=== PATIENT | male | born 2000 | race Native Hawaiian/Other Pacific Islander ===

== ENCOUNTER 2020-12-28 23:09 | Emergency (ER) | payer OTHER ==
[2020-12-28 23:17] VITALS: TEMP 98.6
[2020-12-28] MEDS ORDERED: SODIUM CHLORIDE 0.9% 500 ML 500 ML IV STA (23:50)
--- NOTE | 2020-12-28 23:51 | ED ---
SOB HPI - General Chief Complaint: Shortness of Breath Stated Complaint: SOB, high BP Time Seen by Provider: 12/28/20 23:23 Source: patient Mode of arrival: ambulatory - History of Present Illness Initial Comments: This patient is 20-year-old man who presents with complaint of shortness of breath. The patient has been having episodes of upper abdominal pain, and had been given Bentyl to take by his physician. Patient had not taken this before and then when he took a dose of that tonight, he became very short of breath, anxious and tremulous. No swelling to the oropharynx. No cough or wheeze. No vomiting or diarrhea. No rash. MD Complaint: shortness of breath -: minutes(s) Severity scale (1-10): 0 Consistency: constant Improves With: nothing Worsens With: nothing Associated Symptoms: abdominal pain Treatments Prior to Arrival: none - Related Data Home Medications Medication Instructions Recorded Confirmed Terbinafine [LamISIL] 250 mg PO DAILY 12/31/20 12/31/20 Allergies Allergy/AdvReac Type Severity Reaction Status Date / Time dicyclomine [From Bentyl] AdvReac high blood Verified 12/31/20 12:53 pressure Review of Systems ROS Statement: Those systems with pertinent positive or pertinent negative responses have been documented in the HPI. ROS Other: All systems not noted in ROS Statement are negative. Constitutional: Denies: fever, chills ENT: Denies: throat pain, congestion Respiratory: Reports: dyspnea. Denies: cough, wheezes, stridor Cardiovascular: Reports: palpitations. Denies: chest pain, orthopnea, edema, syncope Gastrointestinal: Reports: as per HPI, abdominal pain. Denies: nausea, vomiting, diarrhea Genitourinary: Denies: dysuria, hematuria, testicular pain Musculoskeletal: Denies: back pain Skin: Denies: rash Neurological: Denies: headache, weakness, numbness Psychiatric: Reports: anxiety Past Medical History Past Medical History: No Reported History History of Any Multi-Drug Resistant Organisms: None Reported Additional Past Surgical History / Comment(s): cyst removal head. Past Psychological History: No Psychological Hx Reported Smoking Status: Vaper Past Alcohol Use History: None Reported Past Drug Use History: None Reported General Exam General appearance: alert, in no apparent distress Head exam: Present: atraumatic, normocephalic Eye exam: Present: normal appearance. Absent: scleral icterus, conjunctival injection ENT exam: Present: normal oropharynx Neck exam: Present: normal inspection, full ROM Respiratory exam: Present: normal lung sounds bilaterally. Absent: respiratory distress, wheezes, rales, rhonchi, stridor Cardiovascular Exam: Present: regular rate, normal rhythm, normal heart sounds. Absent: systolic murmur, diastolic murmur, rubs, gallop GI/Abdominal exam: Present: soft. Absent: distended, tenderness, guarding, rebound, rigid, mass Extremities exam: Present: normal inspection, normal capillary refill. Absent: pedal edema, calf tenderness Back exam: Present: normal inspection. Absent: CVA tenderness (R), CVA tenderness (L) Neurological exam: Present: alert Psychiatric exam: Present: anxious Skin exam: Present: warm, dry, intact, normal color. Absent: rash Course Vital Signs 12/28/20 12/29/20 23:12 00:07 Temperature 98.6 F Pulse Rate 105 H 92 Respiratory 19 18 Rate Blood Pressure 157/99 137/94 O2 Sat by Pulse 97 99 Oximetry Medical Decision Making - Medical Decision Making Patient is 20-year-old man who is having adverse reaction after taking first dose of Bentyl. Given the recent abdominal pains, he also had some lab testing related to that. The workup is negative, and I did recommend ultrasound, and attempted to order that but ultrasound not present in the billing at this time. I discussed appropriate further care and follow-up and patient will refrain from taking further Bentyl - Lab Data Result diagrams: 12/28/20 00:00 12/28/20 00:00 Lab Results 12/28/20 12/28/20 12/28/20 Range/Units 00:00 00:00 00:00 WBC 6.6 (3.8-10.6) k/uL RBC 5.31 (4.30-5.90) m/uL Hgb 16.5 (13.0-17.5) gm/dL Hct 48.4 (39.0-53.0) % MCV 91.3 (80.0-100.0) fL MCH 31.1 (25.0-35.0) pg MCHC 34.0 (31.0-37.0) g/dL RDW 12.1 (11.5-15.5) % Plt Count 246 (150-450) k/uL MPV 9.2 Neutrophils % 60 % Lymphocytes % 31 % Monocytes % 6 % Eosinophils % 0 % Basophils % 0 % Neutrophils # 4.0 (1.3-7.7) k/uL Lymphocytes # 2.0 (1.0-4.8) k/uL Monocytes # 0.4 (0-1.0) k/uL Eosinophils # 0.0 (0-0.7) k/uL Basophils # 0.0 (0-0.2) k/uL Sodium 141 (137-145) mmol/L Potassium 3.7 (3.5-5.1) mmol/L Chloride 102 (98-107) mmol/L Carbon Dioxide 28 (22-30) mmol/L Anion Gap 11 mmol/L BUN 9 (9-20) mg/dL Creatinine 0.93 (0.66-1.25) mg/dL Est GFR (CKD-EPI)AfAm >90 (>60 ml/min/1.73 sqM) Est GFR (CKD-EPI)NonAf >90 (>60 ml/min/1.73 sqM) Glucose 100 H (74-99) mg/dL Calcium 10.1 (8.4-10.2) mg/dL Total Bilirubin 1.2 (0.2-1.3) mg/dL AST 28 (17-59) U/L ALT 21 (4-49) U/L Alkaline Phosphatase 63 (38-126) U/L Troponin I <0.012 (0.000-0.034) ng/mL C-Reactive Protein <5.0 (<10.0) mg/L Total Protein 8.3 H (6.3-8.2) g/dL Albumin 5.1 H (3.5-5.0) g/dL Urine Color Urine Appearance (Clear) Urine pH (5.0-8.0) Ur Specific [place] (1.001-1.035) Urine Protein (Negative) Urine Glucose (UA) (Negative) Urine Ketones (Negative) Urine Blood (Negative) Urine Nitrite (Negative) Urine Bilirubin (Negative) Urine Urobilinogen (<2.0) mg/dL Ur Leukocyte Esterase (Negative) 12/28/20 Range/Units 23:59 WBC (3.8-10.6) k/uL RBC (4.30-5.90) m/uL Hgb (13.0-17.5) gm/dL Hct (39.0-53.0) % MCV (80.0-100.0) fL MCH (25.0-35.0) pg MCHC (31.0-37.0) g/dL RDW (11.5-15.5) % Plt Count (150-450) k/uL MPV Neutrophils % % Lymphocytes % % Monocytes % % Eosinophils % % Basophils % % Neutrophils # (1.3-7.7) k/uL Lymphocytes # (1.0-4.8) k/uL Monocytes # (0-1.0) k/uL Eosinophils # (0-0.7) k/uL Basophils # (0-0.2) k/uL Sodium (137-145) mmol/L Potassium (3.5-5.1) mmol/L Chloride (98-107) mmol/L Carbon Dioxide (22-30) mmol/L Anion Gap mmol/L BUN (9-20) mg/dL Creatinine (0.66-1.25) mg/dL Est GFR (CKD-EPI)AfAm (>60 ml/min/1.73 sqM) Est GFR (CKD-EPI)NonAf (>60 ml/min/1.73 sqM) Glucose (74-99) mg/dL Calcium (8.4-10.2) mg/dL Total Bilirubin (0.2-1.3) mg/dL AST (17-59) U/L ALT (4-49) U/L Alkaline Phosphatase (38-126) U/L Troponin I (0.000-0.034) ng/mL C-Reactive Protein (<10.0) mg/L Total Protein (6.3-8.2) g/dL Albumin (3.5-5.0) g/dL Urine Color Yellow Urine Appearance Clear (Clear) Urine pH 7.0 (5.0-8.0) Ur Specific [place] 1.012 (1.001-1.035) Urine Protein Negative (Negative) Urine Glucose (UA) Negative (Negative) Urine Ketones Negative (Negative) Urine Blood Negative (Negative) Urine Nitrite Negative (Negative) Urine Bilirubin Negative (Negative) Urine Urobilinogen <2.0 (<2.0) mg/dL Ur Leukocyte Esterase Negative (Negative) - EKG Data -: EKG Interpreted by Me EKG shows normal: sinus rhythm, axis (Normal), intervals (Normal), QRS complexes (Normal) Rate: normal (Rate 85 bpm) Interpretation: nonspecific ST-T wave changes Disposition Clinical Impression: Medication reaction Disposition: HOME SELF-CARE Condition: Good Instructions (If sedation given, give patient instructions): Adverse Drug Reaction (ED), Dyspnea (ED) Additional Instructions: As we discussed, follow-up with Dr. Kumar to have the additional studies scheduled. Is patient prescribed a controlled substance at d/c from ED?: No Referrals: Galo Kumar MD [Primary Care Provider] - 1-2 days
[2020-12-29 00:08] VITALS: BP 137/94; PULSE 92; RESP 18
[2020-12-29 00:09] LABS: Basophils % (A) 0 %; Eosinophils % (A) 0 %; HCT 48.4 % (39.0-53.0); HGB 16.5 gm/dL (13.0-17.5); Lymphocytes % (A) 31 %; MCH 31.1 pg (25.0-35.0); MCV 91.3 fL (80.0-100.0); Mean Platelet Volume 9.2; Monocytes # (A) 0.4 k/uL (0-1.0); Monocytes % (A) 6 %; Neutrophils % (A) 60 %; Platelet Count 246 k/uL (150-450); RBC 5.31 m/uL (4.30-5.90); RDW 12.1 % (11.5-15.5); WBC 6.6 k/uL (3.8-10.6)
[2020-12-29 00:11] LABS: Appearance,Urine Clear (Clear); Bilirubin,Urine Negative (Negative); Blood,Urine Negative (Negative); Color,Urine Yellow; Glucose,Urine (UA) Negative (Negative); Ketones,Urine Negative (Negative); Leukocyte Esterase,Urine Negative (Negative); Nitrite,Urine Negative (Negative); Protein,Urine Negative (Negative); Specific Gravity,Urine 1.012 (1.001-1.035); Urobilinogen,Urine <2.0 mg/dL (<2.0)
--- NOTE | 2020-12-29 00:16 | XR ---
EXAMINATION TYPE: XR chest 2V DATE OF EXAM: 12/28/2020 COMPARISON: NONE HISTORY: Short of breath TECHNIQUE: FINDINGS: Heart and mediastinum are normal. Lungs are clear. Diaphragm is normal. Bony thorax appears normal. IMPRESSION: Normal chest. Normal heart.
[2020-12-29 00:34] LABS: ALT 21 U/L (4-49); AST 28 U/L (17-59); African American GFR (CKD) >90 (>60 ml/min/1.73 sqM); Albumin 5.1 g/dL (3.5-5.0); Alkaline Phosphatase 63 U/L (38-126); Anion Gap 11 mmol/L; Blood Urea Nitrogen 9 mg/dL (9-20); Calcium 10.1 mg/dL (8.4-10.2); Carbon Dioxide 28 mmol/L (22-30); Chloride 102 mmol/L (98-107); Glucose 100 mg/dL (74-99); Non-African American GFR(CKD) >90 (>60 ml/min/1.73 sqM); Potassium 3.7 mmol/L (3.5-5.1); Sodium 141 mmol/L (137-145); Total Bilirubin 1.2 mg/dL (0.2-1.3); Total Protein 8.3 g/dL (6.3-8.2)
[2020-12-29 00:51] LABS: C Reactive Protein <5.0 mg/L (<10.0)
== END 2020-12-29 01:30 | disposition home or self-care (01) ==
LOC: EC 23:09
DX: R06.02 Shortness of breath (principal); R10.10 Upper abdominal pain, unspecified; T50.905A Adverse effect of unspecified drugs, medicaments and biological substances, initial encounter; F17.290 Nicotine dependence, other tobacco product, uncomplicated; Z79.899 Other long term (current) drug therapy; Z88.8 Allergy status to other drugs, medicaments and biological substances
CPT/HCPCS: 36415; 71046; 80053; 81003; 84484; 85025; 86140; 93005; 96360; 99285

== ENCOUNTER 2020-12-31 10:34 | Observation (INO) | payer OTHER ==
[2020-12-31] MEDS ORDERED: ONDANSETRON 4 MG/2 ML VIAL IVP PRN (13:36)
[2020-12-31] MEDS ORDERED: HYDROmorphone 0.5 MG/0.5 ML SYRINGE IVP PRN (13:37)
--- NOTE | 2020-12-31 14:51 | US ---
EXAMINATION TYPE: US abdomen complete DATE OF EXAM: 12/31/2020 COMPARISON: NONE CLINICAL HISTORY: RUQ pain. EXAM MEASUREMENTS: Liver Length: 12.7 cm Gallbladder Wall: 0.2 cm CBD: 0.3 cm Spleen: 10.2 cm Right Kidney: 10.2 X 4.0 X 4.6 cm Left Kidney: 9.8 X 5.9 X 4.8 cm Pancreas: wnl Liver: wnl Gallbladder: Slightly contracted. Patient ate and drank around 10:30am Evidence for sonographic Sumner's sign: No CBD: wnl Spleen: wnl Right Kidney: No hydronephrosis or masses seen Left Kidney: No hydronephrosis or masses seen The liver is homogenous. There is no evidence of cholelithiasis. Common bile duct is unremarkable. The visualized portions of the pancreas are homogenous. The spleen is unremarkable. Kidneys are sy mmetric and free of hydronephrosis. No renal lesions are seen. IMPRESSION: No distinct abnormality seen.
[2020-12-31 16:13] LABS: ALT 20 U/L (4-49); AST 24 U/L (17-59); African American GFR (CKD) >90 (>60 ml/min/1.73 sqM); Albumin 4.8 g/dL (3.5-5.0); Albumin/Globulin Ratio 1.7; Alkaline Phosphatase 60 U/L (38-126); Anion Gap 9 mmol/L; Blood Urea Nitrogen 10 mg/dL (9-20); Calcium 9.9 mg/dL (8.4-10.2); Carbon Dioxide 29 mmol/L (22-30); Chloride 101 mmol/L (98-107); Globulin 2.9 g/dL; Glucose 95 mg/dL (74-99); HCT 44.3 % (39.0-53.0); MCH 31.3 pg (25.0-35.0); MCV 92.1 fL (80.0-100.0); Non-African American GFR(CKD) >90 (>60 ml/min/1.73 sqM); Platelet Count 216 k/uL (150-450); Potassium 4.1 mmol/L (3.5-5.1); RBC 4.81 m/uL (4.30-5.90); RDW 11.6 % (11.5-15.5); Sodium 139 mmol/L (137-145); Total Bilirubin 1.2 mg/dL (0.2-1.3); Total Protein 7.7 g/dL (6.3-8.2); WBC 5.2 k/uL (3.8-10.6)
[2020-12-31] MEDS: PANTOPRAZOLE 40 MG/10 ML VIAL IVP SCH (16:16)
[2020-12-31] MEDS: SODIUM CHLORIDE 0.9% 1,000 ML IV SCH ×2 (16:16→20:45)
[2020-12-31] MEDS: IOPAMIDOL CONTRAST (ORAL USE) VIAL PO PRN ×2 (17:14→17:59)
--- NOTE | 2020-12-31 20:59 | CT ---
EXAMINATION TYPE: CT abdomen pelvis w con DATE OF EXAM: 12/31/2020 COMPARISON: Same-day ultrasound. HISTORY: abdominal pain X 2-[address] DLP: 561.9 mGycm Automated exposure control for dose reduction was used. TECHNIQUE: Helical acquisition of images was performed from the lung bases through the pelvis. CONTRAST: Performed with Oral Contrast and with IV Contrast, patient injected with 100 mL of Isovue 300. FINDINGS: LUNG BASES: No significant abnormality is appreciated. LIVER/GB: No significant abnormality is appreciated. PANCREAS: No significant abnormality is seen. SPLEEN: No significant abnormality is seen. ADRENALS: No significant abnormality is seen. KIDNEYS: No significant abnormality is seen. FREE AIR: No free air is visualized. RETROPERITONEAL ADENOPATHY: None visualized REPRODUCTIVE ORGANS: No significant abnormality is seen URINARY BLADDER: No significant abnormality is seen. PELVIC ADENOPATHY: None visualized. OSSEOUS STRUCTURES: No significant abnormality is seen. BOWEL: No significant abnormality is seen. OTHER: None IMPRESSION: GROSSLY UNREMARKABLE CT.
[2020-12-31] MEDS: HYDROcodone/APAP 5-325MG 1 EACH TAB PO PRN (21:57)
[2021-01-01] MEDS: SODIUM CHLORIDE 0.9% 1,000 ML IV SCH ×3 (04:19→21:44)
[2021-01-01] MEDS: PANTOPRAZOLE 40 MG/10 ML VIAL IVP SCH (08:35)
--- NOTE | 2021-01-01 13:33 | P.GSCN ---
History of Present Illness Consult date: 01/01/21 History of present illness: CHIEF COMPLAINT: Abdominal pain HISTORY OF PRESENT ILLNESS: This is a 20-year-old male with a known past medical history of nicotine dependence and toenail fungus in which she is on Lamisil. He presents to the hospital as a direct admit from Dr. Kumar's office in regards to abdominal pain. Patient reports that he has had abdominal pain for about a month and a half. He reports discomfort initially when he eats something going down through the esophagus and into the abdomen. He reports that "it feels like something is sitting in the abdomen." Patient complains of discomfort in the epigastric and left upper quadrant area. He complains of gas discomfort. He also has issues with constipation. He did have a soft stool yesterday that was greenish in color. He denies any blood in his stools. He also reports that there is a lot of discomfort in the abdomen when he tries to lay down flat on his back. He does have a uncle with a known history of Crohn's disease. He reports that his pain is worse after eating. He did undergo a trial of omeprazole with no improvement. He also tried Bentyl and had an ALLERGIC reaction to that medication. Patient denies any fever chills or sweats. Denies any nausea or vomiting. Patient denies any NSAID use. Abdominal ultrasound and computed tomography scan of the abdomen and pelvis was negative. Surgical service was consulted for abdominal pain and possible EGD. PAST MEDICAL HISTORY: See list. PAST SURGICAL HISTORY: See list. MEDICATIONS: See list. ALLERGIES: See list. SOCIAL HISTORY: No illicit drug use. REVIEW OF SYSTEMS: CONSTITUTIONAL: Denies fever or chills. HEENT: Denies blurred vision, vision changes, or eye pain. Denies hemoptysis CARDIOVASCULAR: Denies chest pain or pressure. RESPIRATORY: No shortness of breath. GASTROINTESTINAL: See HPI for pertinent findings HEMATOLOGIC: Denies bleeding disorders. GENITOURINARY: Denies any blood in urine or increased urinary frequency. SKIN: Denies pruitis. Denies rash. PHYSICAL EXAM: VITAL SIGNS: Reviewed GENERAL: Well-developed in no acute distress. HEENT: No sclera icterus. Extraocular movements grossly intact. Moist buccal mucosa. Head is atraumatic, normocephalic. No nasal drainage. ABDOMEN: Soft. Nondistended. Nontender NEUROLOGIC: Alert and oriented. Cranial nerves II through XII grossly intact. LABORATORY DATA: WBC 5.2 hemoglobin 15.0 platelets 216 creatinine 0.84 LFTs normal lipase 94 IMAGING: Computed tomography scan of the abdomen and pelvis and abdominal ultrasound nega tive HIDA scan pending ASSESSMENT: 1. Abdominal pain that is worse after eating PLAN: -Patient is scheduled for EGD on 01/02/[address] Kendrick -Ordered HIDA scan -Nothing by mouth after midnight -Continue IV Protonix Thank you for this consultation Physician Picker / Packer note has been reviewed by physician. Signing provider agrees with the documented findings, assessment, and plan of care. Past Medical History Past Medical History: No Reported History Additional Past Medical History / Comment(s): Pt states he has not felt well since 11/18/20-abdominal pain, flatulence, belching/contipation and stool is yellowish, feels worse after eating/drinking or lying down, states he has lost 15 pounds. Other hx: fungal infection toes, past hyperlipidemia improved with weight loss. History of Any Multi-Drug Resistant Organisms: None Reported Additional Past Surgical History / Comment(s): [place] sebacious cyst removed from head, bilateral lasik eye surgery for vision correction, wisdom teeth extractions. Past Anesthesia/Blood Transfusion Reactions: No Reported Reaction Smoking Status: Vaper - Past Family History Mother Family Medical History: Hypertension Father Family Medical History: Hyperlipidemia Medications and Allergies Home Medications Medication Instructions Recorded Confirmed Type Terbinafine [LamISIL] 250 mg PO DAILY 12/31/20 12/31/20 History Allergies Allergy/AdvReac Type Severity Reaction Status Date / Time dicyclomine [From Bentyl] AdvReac high blood Verified 12/31/20 12:53 pressure Surgical - Exam Vital Signs Temp Pulse Resp BP Pulse Ox 98.2 F 71 16 123/80 99 12/31/20 12:33 12/31/20 12:33 12/31/20 12:33 12/31/20 12:33 12/31/20 12:33 Results - Labs 12/31/20 15:36 12/31/20 15:36 Diabetes panel 12/31/20 Range/Units 15:36 Sodium 139 (137-145) mmol/L Potassium 4.1 (3.5-5.1) mmol/L Chloride 101 (98-107) mmol/L Carbon Dioxide 29 (22-30) mmol/L BUN 10 (9-20) mg/dL Creatinine 0.84 (0.66-1.25) mg/dL Glucose 95 (74-99) mg/dL Calcium 9.9 (8.4-10.2) mg/dL AST 24 (17-59) U/L ALT 20 (4-49) U/L Alkaline Phosphatase 60 (38-126) U/L Total Protein 7.7 (6.3-8.2) g/dL Albumin 4.8 (3.5-5.0) g/dL Calcium panel 12/31/20 Range/Units 15:36 Calcium 9.9 (8.4-10.2) mg/dL Albumin 4.8 (3.5-5.0) g/dL Pituitary panel 12/31/20 Range/Units 15:36 Sodium 139 (137-145) mmol/L Potassium 4.1 (3.5-5.1) mmol/L Chloride 101 (98-107) mmol/L Carbon Dioxide 29 (22-30) mmol/L BUN 10 (9-20) mg/dL Creatinine 0.84 (0.66-1.25) mg/dL Glucose 95 (74-99) mg/dL Calcium 9.9 (8.4-10.2) mg/dL Adrenal panel 12/31/20 Range/Units 15:36 Sodium 139 (137-145) mmol/L Potassium 4.1 (3.5-5.1) mmol/L Chloride 101 (98-107) mmol/L Carbon Dioxide 29 (22-30) mmol/L BUN 10 (9-20) mg/dL Creatinine 0.84 (0.66-1.25) mg/dL Glucose 95 (74-99) mg/dL Calcium 9.9 (8.4-10.2) mg/dL Total Bilirubin 1.2 (0.2-1.3) mg/dL AST 24 (17-59) U/L ALT 20 (4-49) U/L Alkaline Phosphatase 60 (38-126) U/L Total Protein 7.7 (6.3-8.2) g/dL Albumin 4.8 (3.5-5.0) g/dL
--- NOTE | 2021-01-01 13:42 | NM ---
EXAMINATION TYPE: NM hepatobiliary w CCK DATE OF EXAM: 01/01/2021 COMPARISON: CT and ultrasound from yesterday HISTORY: Right upper quadrant pain TECHNIQUE: After the intravenous administration of 5.2 mCi Tc 99m Mebrofenin hepatobiliary scintigrap hy is performed. Immediate images post injection. FINDINGS: There is satisfactory initial accumulation of tracer by the liver. The gallbladder is visualized wit hin 10 minutes. The small bowel activity is identified near 60 minutes. At one hour CCK was adminis tered, patient was injected with 1.6 mcg of Kinevac, and gallbladder ejection fraction is calculated at 89 %, not deviated from the normal range. Therefore there is no scintigraphic evidence of cystic or common bile duct obstruction to suggest acute cholecystitis . IMPRESSION: Ejection fraction is 89%, some consider this abnormal or a hyperkinetic response.
[2021-01-01 13:51] VITALS: RESP 16
--- NOTE | 2021-01-01 17:27 | HP ---
HISTORY AND PHYSICAL CHIEF COMPLAINT: [id number] with past medical history of nicotine addiction, toenail fungus had severe right upper quadrant abdominal pain, worsening with taking Bentyl. He had allergic reaction and came to the emergency room. He feels like food is getting stuck going into the stomach and he has a blockage. He has severe pain. He has an abnormal skin color per his mom. He is unable to eat or drink anything. He has an uncle with a history of Crohn's disease. His pain is severely worse after eating immediately. Sometimes he cannot drink water. He tried omeprazole; no improvement. Bentyl, as mentioned, causes severe bowel pain. He denies NSAID use. The abdomen and pelvis CT scans and ultrasounds were negative. He is admitted for EGD, HIDA scan and colonoscopy. PAST MEDICAL HISTORY: See old chart. ALLERGIES: See old chart. MEDICATIONS: See old chart. REVIEW OF SYSTEMS: Fourteen-point review of systems is otherwise negative. PHYSICAL EXAMINATION: Vital signs stable. Afebrile. Vital signs within normal limits. Pupils equal, round, reactive. ABDOMEN: Soft, nondistended. NEUROLOGIC: Cranial nerves are intact. PSYCH: Fair mood and affect. NEURO: Normal. LABS: Hemoglobin 15, white count 5.2, platelets 216, creatinine 0.84. ASSESSMENT: Abdominal pain, severely worsening, possibly cholecystitis versus esophageal stenosis. He is going to get an EGD tomorrow with Dr. Kendrick. I ordered a HIDA scan. Nothing by mouth after midnight. Continue Protonix. Prognosis guarded. MMODL / IJN: [id number] /
[2021-01-01] MEDS ORDERED: LACTATED RINGERS 1,000 ML IV SCH (18:15)
[2021-01-01] MEDS: HYDROcodone/APAP 5-325MG 1 EACH TAB PO PRN (21:42)
[2021-01-02] MEDS: SODIUM CHLORIDE 0.9% 1,000 ML IV SCH ×3 (00:15→08:01)
[2021-01-02] MEDS: PANTOPRAZOLE 40 MG/10 ML VIAL IVP SCH (08:01)
--- NOTE | 2021-01-02 12:17 | P.CONS ---
History of Present Illness - Reason for Consult Consult date: 01/01/21 Abdominal pain Requesting physician: Galo Kumar - Chief Complaint Abdominal pain - History of Present Illness 20-year-old male with a medical history significant only for nicotine dependence who presented to the hospital for complaints of abdominal pain. The patient has been having symptoms of abdominal pain and discomfort which is present over the past 2 months. The patient reports excessive belching as well as discomfort and episodes of vomiting occurring after eating. He reports a sensation of feeling like food is sitting on the stomach and that is not digesting. Pain is in the epigastric and left lower quadrant of his abdomen. He has reported difficulty with constipation in the past. In the outpatient setting the patient was started on omeprazole therapy and states that initially he felt that the medicine helped but then the one healthy were providing stopped after a few days. In addition he was given dicyclomine which he tried on one occasion and then discontinued as he reports an episode of feeling lightheaded and 18 stars after taking the medicine. He reports a history of Crohn's disease in his uncle. Patient had extensive evaluation on presentation with computed tomography scan of the abdomen and ultrasound both which were negative for any acute intra-abdominal pathology. Currently the patient is an University. Review of Systems REVIEW OF SYSTEMS: CONSTITUTIONAL: Denies any fevers, chills, weight change or fatigue. CARDIOVASCULAR: Denies any chest pain, palpitations high or low blood pressures RESPIRATORY: Denies any shortness of breath, hemoptysis or cough. GENITOURINARY: No dysuria or hematuria. MUSCULOSKELETAL: No weakness reported. SKIN: Denies any new rashes or lesions, jaundice or pallor. PSYCHIATRIC: Denies any depression or anxiety. NEUROLOGY: Denies headache, denies any new focal deficits. EARS/NOSE/THROAT: No recent hearing change, congestion, nasal discharge or sore throat. EYES: No pain in eyes, discharge or change in vision. GASTROINTESTINAL: As per HPI. Past Medical History Past Medical History: No Reported History Additional Past Medical History / Comment(s): Pt states he has not felt well since 11/18/20-abdominal pain, flatulence, belching/contipation and stool is yellowish, feels worse after eating/drinking or lying down, states he has lost 15 pounds. Other hx: fungal infection toes, past hyperlipidemia improved with weight loss. History of Any Multi-Drug Resistant Organisms: None Reported Additional Past Surgical History / Comment(s): [place] sebacious cyst removed from head, bilateral lasik eye surgery for vision correction, wisdom teeth extractions. Past Anesthesia/Blood Transfusion Reactions: No Reported Reaction Smoking Status: Vaper - Past Family History Mother Family Medical History: Hypertension Father Family Medical History: Hyperlipidemia Medications and Allergies Home Medications Medication Instructions Recorded Confirmed Type Terbinafine [LamISIL] 250 mg PO DAILY 12/31/20 12/31/20 History Allergies Allergy/AdvReac Type Severity Reaction Status Date / Time dicyclomine [From Bentyl] AdvReac high blood Verified 12/31/20 12:53 pressure Physical Exam Vitals: Vital Signs Temp Pulse Resp BP BP Pulse Ox 01/01/21 13:50 98 F 60 16 130/79 100 01/01/21 08:00 14 01/01/21 07:27 97.8 F 55 L 14 99/55 99 01/01/21 01:40 97.6 F 61 16 100/64 96 12/31/20 20:42 98.1 F 68 16 138/77 99 12/31/20 15:42 59 L 14 106/67 100 Intake and Output 12/31/20 01/01/21 01/01/21 22:59 06:59 14:59 Other: # Voids 3 2 On physical examination, patient appears comfortable in no apparent distress. HEAD: Normocephalic, atraumatic. EYES: No scleral icterus. No conjunctival injection. MOUTH: No lesions, tongue midline. NECK: Trachea midline, no gross abnormalities. CHEST: No respiratory distress. HEART: S1-S2. ABDOMEN: Soft, nontender. Bowel sounds are positive. No organomegaly. No guarding or rigidity. EXTREMITIES: No pedal edema. SKIN: No rashes, no jaundice. NEUROLOGIC: Alert and oriented x3. No focal deficits. Results CBC & Chem 7: 12/31/20 15:36 12/31/20 15:36 CT scan - abdomen: report reviewed (Computed tomography scan of the abdomen with no acute intra-abdominal pathology noted) Assessment and Plan (1) Abdominal pain Narrative/Plan: 20-year-old male presenting for complaints of abdominal pain present over the past few months. Patient reports frequent episodes of pain in the epigastric region and left upper quadrant of his abdomen, he reports associated belching and excessive gas and the sensation of food not digesting. He was given a trial of omeprazole therapy which she initially felt helped but then states this stopped after a few days. Lipase on presentation normal at 94. Liver enzymes normal with total bilirubin 1.2, alk phos 260, AST 24 and ALT 20. Hemoglobin was also normal at 15. He reports some issues with constipation at baseline. He had both a computed tomography scan of the abdomen and ultrasound of the abdomen on presentation which were negative for any acute intra-abdominal pathology. Unclear etiology, may be related to uncontrolled reflux, peptic ul cer disease, functional bowel disorder, dietary intolerances or other etiology. Current Visit: Yes Status: Acute Code(s): R10.9 - UNSPECIFIED ABDOMINAL PAIN SNOMED Code(s): 81633353 Plan: Supportive care Okay for diet as tolerated Protonix increased to twice daily Surgical service consulted and patient is scheduled for an EGD with Dr. medina tomorrow HIDA scan ordered and pending Extensive discussion with the patient and his mother regarding his symptoms, ex tensive education regarding GERD lifestyle modifications as well as dietary modifications including a FODMAP diet Thank you for allowing us to participate in the care of the patient
[2021-01-02] MEDS ORDERED: IV FLUID CONTINUATION 1,000 ML IV ONE (12:54)
[2021-01-02] MEDS ORDERED: LIDOCAINE 1% INJ 10MG/ML (20 ML MDV) ONE (12:54)
[2021-01-02] MEDS ORDERED: PROPOFOL 10 MG/ML 20 ML VIAL IV ONE (12:54)
--- NOTE | 2021-01-02 13:08 | P.OP ---
Date of Procedure: 01/02/21 Preoperative Diagnosis: Epigastric pain Postoperative Diagnosis: Mild gastritis Procedure(s) Performed: EGD Anesthesia: MAC Surgeon: Clint Kendrick Pathology: other (Antrum) Condition: stable Disposition: PACU Description of Procedure: The patient's placed on the endoscopy table in the lateral position. He received IV sedation. The gastroscope placed oropharynx passed in the esophagus into the stomach. Scope was placed through the pylorus. The first and second portion of the duodenum appeared normal. Scope was then brought back the antrum this. Mildly inflamed. A biopsies performed. Scope was unretroflexed and remainder of the stomach appeared normal. GE junction was at 40 cm the distal esophagus appeared normal. The proximal esophagus.. Scope withdrawn for patient.
[2021-01-02 13:23] VITALS: TEMP 96.4
[2021-01-02 13:58] VITALS: BMI 25.9
[2021-01-02 14:20] VITALS: BP 123/82; PULSE 75
--- NOTE | 2021-01-02 16:03 | P.PN ---
Subjective Progress Note Date: 01/02/21 Principal diagnosis: Abdominal pain The patient was seen sitting up in bed. He is scheduled for an EGD with surgical services today. He states the pain has improved, he just has a kind of nagging discomfort in the right upper quadrant. Denies any nausea or vomiting. Fevers or acute changes through the night. Objective - Vital Signs Vital signs: Vital Signs Temp 97.5 F L 01/02/21 02:19 Pulse 62 01/02/21 02:19 Resp 16 01/02/21 02:19 BP 106/64 01/02/21 02:19 Pulse Ox 96 01/02/21 02:19 Intake & Output 01/01/21 01/02/21 01/02/21 18:59 06:59 18:59 Other: Voiding Method Toilet # Voids 1 2 - Exam General appearance: The patient is alert, oriented, appears in no acute distress. HET: Head is normocephalic and atraumatic. Conjunctiva pink. Sclera anicteric. Neck: Supple without lymphadenopathy. Abdomen: Soft, nontender, nondistended with bowel sounds. No guarding or rigidity. Extremities: Normal skin color and turgor. No pedal edema Skin: No rashes, no jaundice Neurological: No focal deficits. Alert and oriented 3. - Labs CBC & Chem 7: 12/31/20 15:36 12/31/20 15:36 Assessment and Plan (1) Abdominal pain Narrative/Plan: A 20-year-old male who presented to the hospital for complaints of abdominal pain that presented over the past few months. Patient reports frequent episodes of pain in the epigastric region and left upper quadrant of his abdomen with reports of associated belching and excessive gas. He also states he has a sensation of food not digesting. He was given a trial of omeprazole which initially felt helped but then states stopped after a few days. Lipase was nor mal on presentation at 94, liver enzymes normal with total bilirubin 1.2, alkaline phosphatase 260, AST 24 and ALT 20. Hemoglobin was normal at 15. He reports some issues with constipation at baseline. He had both a CT of the abdomen and ultrasound the abdomen on presentation which were negative for any acute intra-abdominal pathology. Unclear etiology, may be related to uncontrolled reflux, peptic ulcer disease, functional bowel disorder, dietary intolerance or other etiology. Current Visit: Yes Status: Acute Code(s): R10.9 - UNSPECIFIED ABDOMINAL PAIN SNOMED Code(s): 41595481 Plan: 1. Supportive care 2. Advance diet per surgery recommendations 3. Patient is scheduled for EGD with surgical services 4. HIDA scan ordered and reviewed 5. Continue Protonix twice a day 6. Discussion regarding GERD and lifestyle modifications as well as dietary m odifications including a FODMAP diet but patient Thank you for this consultation we will continue to follow Dr. Lemos I agree with the dictator's note, documented as a scribe by Dilcia Jefferson.
--- NOTE | 2021-01-02 19:55 | DS ---
DISCHARGE SUMMARY This is a 20-year-old white male who was admitted with abdominal pain, had an EGD done which showed minimal gastritis. He had a HIDA scan that showed hyperactive gallbladder function. He will be discharged home today. Follow up on Thursday morning, 2 days from now, for gallbladder surgery. On a bland diet. Activity as tolerated. Tylenol for pain and Tylenol PM for insomnia. Current medications to continue at home, including Lamisil. CONDITION: Stable. PROGNOSIS: Guarded. MMODL / IJN: [id number] /
[2021-01-02] MEDS ORDERED: PANTOPRAZOLE 40 MG/10 ML VIAL IVP SCH (21:00)
== END 2021-01-02 16:35 | disposition home or self-care (01) ==
LOC: 6NMEDSUR 11:45
PROVIDERS: ADMIT Family Medicine; ATTEND Family Medicine
DX: K29.70 Gastritis, unspecified, without bleeding (principal); K59.00 Constipation, unspecified; F17.290 Nicotine dependence, other tobacco product, uncomplicated; B35.1 Tinea unguium; R14.3 Flatulence; G47.00 Insomnia, unspecified; Z79.899 Other long term (current) drug therapy; Z88.8 Allergy status to other drugs, medicaments and biological substances; Z82.49 Family history of ischemic heart disease and other diseases of the circulatory system; Z83.79 Family history of other diseases of the digestive system; Z83.49 Family history of other endocrine, nutritional and metabolic diseases
CPT/HCPCS: 96376; 96374; 96375; 88305; 80053; 83690; 85027; 76700; 74177; 78227; 43239; G0379; G0378 ×3; A9537; J2805; J2001; J2704; C9113 ×3; J1170; Q9967

== ENCOUNTER 2021-01-04 06:20 | Day surgery (SDC) | payer OTHER ==
[2021-01-03 08:59] VITALS: BMI 25.8
[~2021-01-04 06:20] MED LIST: ACETAMINOPHEN TAB 500 MG TAB PO PRN; HEPARIN SODIUM,PORCINE 5,000 UNIT/ML 1 ML VIAL SQ PRN
[2021-01-04] MEDS ORDERED: ONDANSETRON 4 MG/2 ML VIAL ONE (06:52)
[2021-01-04] MEDS ORDERED: LACTATED RINGERS 1,000 ML IV ONE (07:17)
[2021-01-04] MEDS ORDERED: DEXAMETHASONE SOD PHOSPHATE 4 MG/ML 1 ML VIAL IVP ONE (07:20)
[2021-01-04] MEDS: ONDANSETRON 4 MG/2 ML VIAL IVP ONE ×2 (07:20→09:05)
[2021-01-04] MEDS ORDERED: ACETAMINOPHEN TAB 500 MG TAB PO ONE (07:23)
[2021-01-04] MEDS ORDERED: HEPARIN SODIUM,PORCINE 5,000 UNIT/ML 1 ML VIAL SQ ONE (07:26)
[2021-01-04] MEDS ORDERED: NEOSTIGMINE 1 MG/ML 10 ML VIAL ONE (07:49)
[2021-01-04] MEDS ORDERED: SUCCINYLCHOLINE CHLORIDE 100 MG/5 ML SYR IV ONE (07:49)
[2021-01-04] MEDS ORDERED: MIDAZOLAM 2 MG/2 ML VIAL ONE (07:49)
[2021-01-04] MEDS ORDERED: PROPOFOL 10 MG/ML 20 ML VIAL IV ONE (07:49)
[2021-01-04] MEDS ORDERED: LIDOCAINE 1% INJ 10MG/ML (20 ML MDV) ONE (07:49)
[2021-01-04] MEDS ORDERED: PHENYLEPHRINE-0.9% NACL SYG 1,000 MCG/10 ML SYRINGE ONE (07:49)
[2021-01-04] MEDS ORDERED: fentaNYL (PF) 50 MCG/ML 2 ML AMP ONE (07:49)
[2021-01-04] MEDS ORDERED: KETOROLAC 15 MG/ML 1 ML VIAL ONE (07:49)
[2021-01-04] MEDS ORDERED: GLYCOPYRROLATE 0.2 MG/ML 2 ML VIAL ONE (07:49)
[2021-01-04] MEDS ORDERED: ROCURONIUM 10 MG/ML (10 ML VIAL) IV ONE (07:49)
[2021-01-04] MEDS ORDERED: BUPIVACAIN-EPI 0.5%-1:200,000 30 ML VIAL SQ ONE ×2 (08:00→08:15)
[2021-01-04 08:48] VITALS: RESP 16; TEMP 97.8
--- NOTE | 2021-01-04 08:55 | P.GSHP ---
History of Present Illness H&P Date: 01/04/21 Chief Complaint: Right upper quadrant pain This a 20-year-old male who presents today for laparoscopic cholecystectomy. Patient's echo points were quadrant pain. Patient's recent HIDA scan shows abnormal ejection fraction. Past Medical History Past Medical History: No Reported History, GERD/Reflux Additional Past Medical History / Comment(s): Pt states he has not felt well since 11/18/20-abdominal pain, flatulence, belching/contipation and stool is yellowish, feels worse after eating/drinking or lying down, states he has lost 15 pounds. fungal infection toes History of Any Multi-Drug Resistant Organisms: None Reported Additional Past Surgical History / Comment(s): [place] sebacious cyst removed from head, bilateral lasik eye surgery, wisdom teeth extractions, EGD Past Anesthesia/Blood Transfusion Reactions: No Reported Reaction Smoking Status: Vaper - Past Family History Mother Family Medical History: No Reported History Father Family Medical History: Hyperlipidemia Medications and Allergies Home Medications Medication Instructions Recorded Confirmed Type Acetaminophen/Diphenhydramine 2 tab PO HS 01/03/21 01/04/21 History [Tylenol PM 500-25mg] Famotidine [Pepcid AC] 10 mg PO QAM 01/03/21 01/04/21 History Allergies Allergy/AdvReac Type Severity Reaction Status Date / Time dicyclomine [From Bentyl] AdvReac high blood Verified 01/04/21 07:04 pressure Surgical - Exam Vital Signs Temp Pulse Resp BP Pulse Ox 98.1 F 69 18 121/78 100 01/04/21 07:01 01/04/21 07:01 01/04/21 07:01 01/04/21 07:01 01/04/21 07:01 - General well developed, well nourished, no distress - Eyes PERRL - ENT normal pinna - Neck no masses - Respiratory normal expansion - Cardiovascular Rhythm: regular - Abdomen Abdomen: soft, non tender Assessment and Plan Assessment: Chronic cholecystitis. We'll perform laparoscopic cholecystectomy
[2021-01-04] MEDS ORDERED: HYDROmorphone 0.5 MG/0.5 ML SYRINGE IVP ONE ×2 (08:58→09:07)
--- NOTE | 2021-01-04 08:58 | P.OP ---
Date of Procedure: 01/04/21 Preoperative Diagnosis: Chronic cholecystitis Postoperative Diagnosis: Chronic cholecystitis Procedure(s) Performed: Laparoscopic cholecystectomy Anesthesia: MIGUELINA Surgeon: Clint Kendrick Estimated Blood Loss (ml): 5 Pathology: other (gAll bladder) Condition: stable Disposition: PACU Description of Procedure: The patient was placed on the operating table. The patient received a general endotracheal tube anesthesia. The patients abdomen was prepped and draped in the usual sterile fashion. Through an infraumbilical stab incision, the fascia of the anterior abdominal wall was grasped with a pair of Kochers and then the Veress needle was placed in the peritoneal cavity. Position of the Veress needle was confirmed with positive drop test. The abdomen was then insufflated. After adequate insufflation, the 10 mm trocar was placed in the peritoneal cavity. Following this the laparoscope was placed in the peritoneal cavity. The patient was placed in the head-up, right side up position and then a 5 mm trocar was placed in the right lateral and right subcostal position under direct visualization. A 8 mm trocar was placed in the epigastric position. The gallbladder was grasped in the fundus and infundibulum. Traction on the gallbladder was placed in the lateral and the cephalad positions. The triangle of Calot was visualized.. The cystic duct was bluntly dissected until the union of the cystic duct and common bile duct was seen. A critical view of safety was achieved. The cystic duct was then divided and sealed with the Harmonic scissors. A PDS Endoloop was then placed throughout the cystic duct stump. The cystic artery divided and sealed with the Harmonic scissors. The gallbladder was then removed from the liver bed using Harmonic scissors. The gallbladder was then extracted through the epigastric port site. Operative field was checked for any bleeding spots and Harmonic scissors was used to coagulate the liver bed. The abdomen was irrigated. The trocars were removed. The skin was closed using interrupted 3-0 Vicryl suture. Dermabond dressing were applied. The patient tolerated the procedure well.
[2021-01-04] MEDS: HYDROmorphone 1 MG/ML 1 ML SYRINGE IVP ONE ×2 (09:12→09:17)
[2021-01-04 09:49] VITALS: BP 121/77; PULSE 61
== END 2021-01-04 10:53 | disposition home or self-care (01) ==
LOC: OR 06:20
PROVIDERS: ATTEND Surgery
DX: K81.1 Chronic cholecystitis (principal); K21.9 Gastro-esophageal reflux disease without esophagitis; R63.4 Abnormal weight loss; F17.290 Nicotine dependence, other tobacco product, uncomplicated; Z68.25 Body mass index [BMI] 25.0-25.9, adult; Z86.19 Personal history of other infectious and parasitic diseases; Z87.2 Personal history of diseases of the skin and subcutaneous tissue; Z98.890 Other specified postprocedural states; Z79.899 Other long term (current) drug therapy; Z88.8 Allergy status to other drugs, medicaments and biological substances; Z83.438 Family history of other disorder of lipoprotein metabolism and other lipidemia
CPT/HCPCS: 88304; 47562; J2250; J1644; J1100; J2710; J0690; J2405; J2001; J3010; J1170 ×2; J1885; J2370; J0330; J2704